=== PATIENT | female | born 1970 | race Caucasian/White ===

== ENCOUNTER → 2023-09-03 08:19 | Outpatient (REF) | payer OTHER, SELFPAY | LOC: DHCBC MAIN 08:19 | PROVIDERS: ATTENDING PHYSICIAN Internal Medicine Cardiovascular Disease; FAMILY PHYSICIAN Family Medicine | DX: R07.9 Chest pain, unspecified (principal) | CPT/HCPCS: 93306 ==

== ENCOUNTER → 2023-09-05 10:23 | Outpatient (REF) | payer OTHER, SELFPAY | LOC: RCS 10:23 | PROVIDERS: ATTENDING PHYSICIAN Internal Medicine Cardiovascular Disease; FAMILY PHYSICIAN Family Medicine | DX: R07.9 Chest pain, unspecified (principal) | CPT/HCPCS: 93017 ==

== ENCOUNTER 2024-05-13 16:54 | Emergency (ER) | payer OTHER, SELFPAY ==
[2024-05-13 16:57] VITALS: BP 143/94
[2024-05-13] MEDS: DECADRON 10 MG PO (19:31)
[2024-05-13] MEDS: ROXICODONE 10 MG PO (19:31)
[2024-05-13] MEDS: ZOFRAN ODT (ORALLY DISINTEGRATING) 4 MG PO (20:12)
--- NOTE | 2024-05-13 20:22 | ED.GENMED ---
History of Present Illness
General
Chief Complaint: Musculo-Skeletal Complaint
Source: patient and spouse
Exam Limitations: none
Time Seen by Provider: 05/13/24 18:01
Nursing documentation reviewed up to this point in time: agreed with
History of Present Illness
History of Present Illness:
53-year-old female past medical history of hypertension hyperlipidemia presenting to the emergency department today with concerns of ongoing neck pain over the past few weeks has been having an outpatient assessment that shows herniated disc to
C5-C6 on MRI. Ongoing pain with radiation down her right arm since. Has been on steroids a few weeks ago without significant improvement. Also has been on gabapentin. Has follow-up in 2 days with the neck surgeon. Denies any fevers redness
warmth numbness or weakness.
Past History
Past History
ED Past Medical History: None
ED Past Surgical History: None
Review of Systems
Review of Systems
Allergies reviewed?: Yes
All Other Systems: ROS reviewed and negative except as documented in HPI and ROS
Phy Exam
Physical Exam
Physical Exam:
GENERAL: Alert , in no apparent distress
EYE: pupils equal and reactive
NECK: Supple, no significant adenopathy.
ENT: o/p clr, mmm.
CARDIAC: Regular rate and rhythm .
LUNGS: Clear breath sounds bilaterally, no acute respiratory distress, no wheezes/rales/rhonchi
ABDOMEN: Soft, without focal tenderness, no r/g, no cvat
NEUROLOGICAL: Alert and oriented, no focal neuro deficits 5 out of 5 upper and lower extremity strength normal sensation when palpating bilaterally normal finger-nose and [id number] no pronator drift
SKIN: Warm and dry, skin intact.
MUSCULOSKELETAL: No edema, well perfused.
PSYCH: Normal and appropriate interaction.
Course
Orders/Labs/Results
Orders:
Orders
05/13/24 19:11
Dexamethasone [Decadron] 10 mg PO NOW STA
Oxycodone [Roxicodone] 10 mg PO NOW STA
05/13/24 20:11
Ondansetron Orally Disint [Zofran Odt (Orally Disintegrating)] 4 mg .ROUTE .STK-MED ONE
Ondansetron Orally Disint [Zofran Odt (Orally Disintegrating)] 4 mg PO NOW STA
Vital Signs
Initial and Last Documented VS:
Initial Vital Signs
Temp Pulse Resp BP Pulse Ox
98.3 F 76 16 143/94 99
05/13/24 16:57 05/13/24 16:57 05/13/24 16:57 05/13/24 16:57 05/13/24 16:57
Last Documented Vital Signs
Temp Pulse Resp BP Pulse Ox
98.3 F 76 16 143/94 99
05/13/24 16:57 05/13/24 16:57 05/13/24 16:57 05/13/24 16:57 05/13/24 16:57
MDM/Problems Addressed
MDM/Problems Addressed:
53-year-old female presenting to the emergency department today for concerns of ongoing neck pain with radiation down her right arm. Normal neuro logically no signs of infection patient went symptoms consistent with her neck radiculopathy. Plan
for treatment and reassessment. Patient feeling much better after receiving medications here stable for outpatient follow-up. Return precautions given.
*Critical Care Note
Total Time (30-74mins, 75-104mins- exclusive of procedures): Not Applicable
ED Attending Note
-
Portions of this chart may have been created with voice recognition software.� Occasional wrong word or��sound alike� substitutions may have occurred due to the inherent limitations of voice recognition software.
Discharge Plan
Departure
Patient Disposition: Home (Routine Discharge)
Date of Disposition: 05/13/24
Time of Disposition: 20:40
Patient with high blood pressure during this ER visit?: No
Condition: Good
Covid-19: Not Applicable
Discharge Problem:
Acute neck pain, Radicular neuropathy
Instructions: Radiculopathy (DC)
Prescriptions:
New
oxycodone 5 mg tablet
5 mg PO Q6H PRN (Reason: Pain) Qty: 10 0RF
ondansetron 4 mg tablet,disintegrating
4 mg PO Q6H PRN (Reason: nausea and vomiting) Qty: 7 0RF
prednisone 50 mg tablet
50 mg PO DAILY 4 Days Qty: 4 0RF
No Action
potassium chloride 20 mEq tablet extended release
20 meq PO DAILY 7 Days Qty: 7 0RF
prednisone 20 mg tablet
40 mg PO DAILY 4 Days Qty: 8 0RF
Referrals:
Brant Olvera MD [Active] - Follow up in 5-7 days
Deneen Negro DO [Family Provider] -
Activity Restrictions/Additional Instructions:
You came to the emergency department today with concerns of neck discomfort with radiation down your arm. You get improving symptoms with the treatment here. Please continue this as needed. Please follow-up closely with the pain management
doctor. Return to the emergency department for any worsening, new or concerning symptoms.
Interventions
Interventions:
*Risk Screen - Suicide Last Done: 05/13/24 16:57
*General Assessment Last Done: 05/13/24 16:57
*Neglect/Abuse Screening Last Done: 05/13/24 16:57
*ED COVID-19 Vaccine History Last Done: 05/13/24 18:58
ED-Musculoskeletal Assessment Last Done: 05/13/24 18:45
Discharge Date and Time
Print Language: [email or web address]
[2024-05-13 20:46] VITALS: BP 124/74
== END 2024-05-13 20:47 | disposition home or self-care (01) ==
LOC: EMR 16:54
PROVIDERS: EMERGENCY PHYSICIAN Emergency Medicine; FAMILY PHYSICIAN Family Medicine
DX: M54.12 Radiculopathy, cervical region (principal); G62.9 Polyneuropathy, unspecified; I10 Essential (primary) hypertension; E78.5 Hyperlipidemia, unspecified
CPT/HCPCS: 99283

== ENCOUNTER → 2024-06-19 12:41 | Outpatient (REF) | payer OTHER, SELFPAY | LOC: HWCARD 12:41 | PROVIDERS: ATTENDING PHYSICIAN Pain Medicine Interventional Pain Medicine; FAMILY PHYSICIAN Family Medicine | DX: Z01.818 Encounter for other preprocedural examination (principal) | CPT/HCPCS: 93005 ==